=== PATIENT | male | born 1960 | race African-American/Black ===

== ENCOUNTER 2023-01-31 06:14 | Emergency (ER) | payer MEDICAID, MEDICARE ==
[~2023-01-31] VITALS: Ht 175.3 cm; Wt 109.0 kg
[~2023-01-31 06:14] MED LIST: TAMS-11 MT
[2023-01-31 06:19] VITALS: O2SAT 99
[2023-01-31] MEDS ORDERED: KETOROLAC 30MG/ML VIAL IM ONE (07:15)
[2023-01-31 07:24] LABS: BASOPHILS % 0.5 % (0.0-2.0); EOSINOPHILS % 3.1 % (0.0-5.0); HEMATOCRIT. 40.5 % (42.0-52.0); HEMOGLOBIN. 13.2 g/dL (14.0-18.0); LYMPHOCYTES % 23.2 % (20.0-50.0); MEAN CORPUSCULAR HEMOGLOBIN 28.8 pg (28.0-32.0); MEAN CORPUSCULAR VOLUME 88.5 fL (80.0-94.0); MEAN PLATELET VOLUME 8.1 fl (7.4-10.4); MONOCYTES % 7.5 % (2.0-8.0); NEUTROPHILS % 65.7 % (40.0-76.0); PLATELET 204 x1000/uL (130-400); RED BLOOD CELL COUNT 4.57 mill/uL (4.7-6.1)
[2023-01-31 07:32] LABS: CHLORIDE 105 mEq/L (98-107)
[2023-01-31 09:00] LABS: CLARITY URINE CLOUDY (CLEAR); COLOR URINE DARK YELLOW (YELLOW); KETONES URINE TRACE (NEGATIVE); LEUKOCYTE ESTERASE URINE TRACE (NEGATIVE); NITRITE URINE NEGATIVE (NEGATIVE); OCCULT BLOOD URINE 3+ (NEGATIVE); PROTEIN URINE 2+ (NEGATIVE); SPECIFIC GRAVITY URINE 1.025 (1.005-1.030)
[2023-01-31] MEDS ORDERED: IBUP-2029 MT (11:00)
[2023-01-31 12:28] VITALS: BP 142/80; PULSE 77; RESP 16; TEMP 97.5
== END 2023-01-31 12:29 | disposition home or self-care (01) ==
LOC: ER 06:14
DX: R31.9 Hematuria, unspecified (principal); E11.9 Type 2 diabetes mellitus without complications; I10 Essential (primary) hypertension; Z88.0 Allergy status to penicillin
CPT/HCPCS: 80053; 81003; 83605; 83690; 85025; 36415; 74176; 96372; 99285; J1885; Z7610

== ENCOUNTER 2023-03-31 03:16 | Emergency (ER) | payer MEDICARE, MEDICAID ==
[~2023-03-31] VITALS: Ht 172.7 cm; Wt 100.0 kg
[~2023-03-31 03:16] MED LIST changes: +IBUP-2029 MT
[2023-03-31 03:19] VITALS: BP 146/82; O2SAT 98
[2023-03-31 04:03] LABS: BASOPHILS % 0.9 % (0.0-2.0); EOSINOPHILS % 3.1 % (0.0-5.0); HEMATOCRIT. 40.2 % (42.0-52.0); HEMOGLOBIN. 13.1 g/dL (14.0-18.0); LYMPHOCYTES % 27.2 % (20.0-50.0); MEAN CORPUSCULAR HEMOGLOBIN 28.5 pg (28.0-32.0); MEAN CORPUSCULAR HGB CONC 32.5 g/dL (31.0-37.0); MEAN CORPUSCULAR VOLUME 87.7 fL (80.0-94.0); MEAN PLATELET VOLUME 8.3 fl (7.4-10.4); NEUTROPHILS % 60.8 % (40.0-76.0); PLATELET 220 x1000/uL (130-400); RED BLOOD CELL COUNT 4.59 mill/uL (4.7-6.1); WHITE BLOOD COUNT 5.3 x1000/uL (4.5-11.0)
[2023-03-31 04:10] LABS: CHLORIDE 106 mEq/L (98-107); INDEX HEMOLYSI 1 (1-3); INDEX ICTERIC 1 (1-4); INDEX LIPEMIC 1 (1-3); POTASSIUM 3.4 mEq/L (3.5-5.1); SODIUM 136 mEq/L (136-145)
[2023-03-31 04:12] LABS: CALCIUM 8.9 mg/dL (8.5-10.1)
[2023-03-31 04:16] LABS: CARBON DIOXIDE 25 mEq/L (21-32); GLUCOSE 120 mg/dL (70-105); UREA NITROGEN BLOOD 15 mg/dL (7-21)
[2023-03-31 05:18] VITALS: PULSE 80; RESP 18; TEMP 98.4
[2023-04-01] MEDS ORDERED: METFORMIN (12:04)
[2023-04-01] MEDS ORDERED: LIDO28.35 TP (13:54)
== END 2023-03-31 05:19 | disposition home or self-care (01) ==
LOC: ER 03:35
DX: R33.9 Retention of urine, unspecified (principal); I10 Essential (primary) hypertension; E11.9 Type 2 diabetes mellitus without complications; Z88.0 Allergy status to penicillin; Z00.00 Encounter for general adult medical examination without abnormal findings
CPT/HCPCS: 36415; 51702; 80048; 85025; 99284

== ENCOUNTER 2023-04-01 12:00 | Emergency (ER) | payer MEDICARE, MEDICAID ==
[~2023-04-01] VITALS: Ht 172.7 cm; Wt 113.5 kg
[2023-04-01] MEDS ORDERED: METFORMIN (12:04)
[2023-04-01 12:05] VITALS: BP 106/42; PULSE 88; RESP 16; TEMP 98.2; O2SAT 97
[2023-04-01] MEDS ORDERED: LIDO28.35 TP (13:54)
== END 2023-04-01 16:19 | disposition home or self-care (01) ==
LOC: ER 12:06
DX: R33.9 Retention of urine, unspecified (principal); Z88.0 Allergy status to penicillin
CPT/HCPCS: 99283